=== PATIENT | male | born 1975 | race Native Hawaiian/Other Pacific Islander ===

== ENCOUNTER 2020-07-06 12:45 | Emergency (ER) | payer SELFPAY ==
[2020-07-06 12:59] VITALS: BP 154/106; PULSE 103; RESP 16; TEMP 36.9; O2SAT 94; BMI 33.0
--- NOTE | 2020-07-06 13:13 | ECG_ITS ---
[facility] Test Date: 2020-07-06 Pat Name: Tavo Rondon Department: Room: Gender: Male Clerical Manager: : 1975 Requested By: Roberto Morneal Order Number: [id number] Jose MD: Chapis Nicole M.D. Measurements Intervals [place] Rate: 112 P: 37 ID: 162 QRS: 72 QRSD: 90 T: 36 QT: 296 QTc: 405 Interpretive Statements SINUS TACHYCARDIA EARLY REPOLARIZATION [ST ELEVATION WITH NORMALLY INFLECTED T WAVE] ABNORMAL RHYTHM ECG No previous ECG available for comparison Electronically Signed On 07-06-2020 20:46:21 CDT by Chapis Nicole M.D. [id number]
--- NOTE | 2020-07-06 13:24 | W.ED.CHESTPA ---
HPI - Chest Pain General: Chief Complaint: Chest Pain Stated Complaint: CP, SOB, CHEST PRESSURE Time Seen by Provider: 07/06/20 13:06 History of Present Illness: HPI narrative: 45-year-old male presents with chest pressure/shortness of breath that started around 1:30 AM this morning. Patient reports he gets worse with deep breaths. Patient reports he has a lot of gas and has been belching and passing gas quite a bit. He feels almost like there is a pressure coming out of his upper abdomen into his chest. Patient denies any fevers or chills. He does report an occasional cough. Associated symptoms: Reports dyspnea; Deny abdominal pain, fever(s), nausea or vomiting Review of Systems Const: Denies: fever(s) or chills Card: Reports: chest pain Resp: Reports: dyspnea and pain on inspiration GI: Reports: belching and excessive flatus; Denies: abdominal pain, nausea or vomiting : Denies: flank pain or difficulty urinating Skin/Breast: Denies: rash or pruritus Neuro: Denies: headache(s) Psych: Denies: anxiety or depression Physical Exam Const: COMMON NORMALS: patient oriented x3 GENERAL APPEARANCE: cooperative, well kempt and other (Mildly uncomfortable) HENMT: COMMON NORMALS: normocephalic and atraumatic HEAD & SCALP: normocephalic and atraumatic Eye: COMMON NORMALS: Equal, round and reactive pupils present and EOMs intact bilaterally PUPIL: Yes Equal, round and reactive pupils present Chest: COMMONS NORMALS: normal inspection of the chest Resp: COMMON NORMALS: normal respiratory effort, No retractions, No use of accessory muscles and clear to auscultation bilaterally EFFORT & INSPECTION: Yes able to speak in complete sentences AUSCULTATION: clear to auscultation bilaterally Cardio: COMMON NORMALS: regular rate RATE: regular rate and tachycardic GI: COMMON NORMALS: Soft to palpation and non-tender PALPATION: Yes Soft to palpation Extremity: COMMON NORMALS: normal to inspection and full ROM Neuro: COMMON NORMALS: patient oriented x3, CN's II-XII intact bilaterally and moves all extremities Psych: APPEARANCE: Yes grossly normal and Yes well kempt Skin: COMMON NORMALS: no rashes or lesions noted GENERAL SKIN EXAM: no rashes or lesions noted Course Vital Signs: Vital signs: Vital Signs Temperature 98.4 F 05/16/21 12:59 Pulse Rate 116 H 07/06/20 15:42 Respiratory Rate 18 07/06/20 15:42 Blood Pressure 147/105 07/06/20 15:42 Pulse Oximetry 97 07/06/20 14:35 MDM - Chest Pain MDM Narrative: Medical decision making narrative: Patient symptoms significantly improved following Toradol. The pain in his chest wall completely resolved. Patient does have elevated white count. I suspect he has a early viral bronchitis/infectious bronchitis. I will treat him with azithromycin, I will give him ibuprofen 800 mg 3 times a day along with a inhaler. Patient stable and discharged home. Lab Data: Attestation: I reviewed the patient's lab results. Labs: Lab Results 07/06/20 07/06/20 07/06/20 Range/Units 13:37 13:37 13:37 WBC 15.8 H (4.0-10.0) 10^3/ uL RBC 5.66 H (4.1-5.3) 10^6/u L Hgb 17.3 H (11.7-16.6) g/dL Hct 49.9 (42.0-52.0) % MCV 88.2 (80-94) fL MCH 30.6 (28.0-34.0) pg MCHC 34.7 (30.0-36.0) g/dL RDW 12.4 (12.1-15.1) % Plt Count 224 (130-400) 10^3/c mm MPV 10.6 H (7.4-10.4) fL Neut % (Auto) 81.4 % Lymph % (Auto) 8.2 % [place] % (Auto) 9.6 % Eos % (Auto) 0.2 % Baso % (Auto) 0.3 % Neut # (Auto) 12.87 H (1.8-7.7) 10^3/u L Lymph # (Auto) 1.3 (0.8-4.8) 10^3/u L [place] # (Auto) 1.5 H (0.2-0.9) 10^3/u L Eos # (Auto) 0.0 (0.0-0.8) 10^3/u L Baso # (Auto) 0.1 (0.0-0.1) 10^3/u L Nucleated RBC % (a uto) 0 % Nucleated RBCs # 0.0 /100WBC Sodium 137 (136-145) mmol/L Potassium 4.1 (3.5-5.1) mmol/L Chloride 102 (98-107) mmol/L Carbon Dioxide 24 (22-29) mmol/L Anion Gap 15.1 (5-19) BUN 11 (6-20) mg/dL Creatinine 0.9 (0.7-1.2) mg/dL GFR Calculation 91.3 (90-130) mL/min Glucose 109 (65-115) mg/dL Calculated Osmolal ity 284 L (285-295) mOsm/k g Calcium 8.9 (8.5-10.5) mg/dL Total Bilirubin 0.7 (0.15-1.2) mg/dL AST 21 (0-40) U/L ALT 36 (0-41) U/L Alkaline Phosphata se 92 (40-130) IU/L Troponin T Baselin e 6 (0-15) ng/L Troponin T 120 Min [place] (0-15) ng/L Delta Troponin T (0-10) ABS# Total Protein 7.3 (6.6-8.7) g/dL Albumin 4.0 (3.5-5.2) g/dL Globulin 3.3 (1.3-4.6) g/dL Lipase 32 (13-60) U/L / Range/Units 15:37 WBC (4.0-10.0) 10^3/ uL RBC (4.1-5.3) 10^6/u L Hgb (11.7-16.6) g/dL Hct (42.0-52.0) % MCV (80-94) fL MCH (28.0-34.0) pg MCHC (30.0-36.0) g/dL RDW (12.1-15.1) % Plt Count (130-400) 10^3/c mm MPV (7.4-10.4) fL Neut % (Auto) % Lymph % (Auto) % [place] % (Auto) % Eos % (Auto) % Baso % (Auto) % Neut # (Auto) (1.8-7.7) 10^3/u L Lymph # (Auto) (0.8-4.8) 10^3/u L [place] # (Auto) (0.2-0.9) 10^3/u L Eos # (Auto) (0.0-0.8) 10^3/u L Baso # (Auto) (0.0-0.1) 10^3/u L Nucleated RBC % (a uto) % Nucleated RBCs # /100WBC Sodium (136-145) mmol/L Potassium (3.5-5.1) mmol/L Chloride (98-107) mmol/L Carbon Dioxide (22-29) mmol/L Anion Gap (5-19) BUN (6-20) mg/dL Creatinine (0.7-1.2) mg/dL GFR Calculation (90-130) mL/min Glucose (65-115) mg/dL Calculated Osmolal ity (285-295) mOsm/k g Calcium (8.5-10.5) mg/dL Total Bilirubin (0.15-1.2) mg/dL AST (0-40) U/L ALT (0-41) U/L Alkaline Phosphata se (40-130) IU/L Troponin T Baselin e (0-15) ng/L Troponin T 120 Min [place] 6.00 (0-15) ng/L Delta Troponin T 0 (0-10) ABS# Total Protein (6.6-8.7) g/dL Albumin (3.5-5.2) g/dL Globulin (1.3-4.6) g/dL Lipase (13-60) U/L Imaging Data^: CXR: Attestation: I personally reviewed and interpreted this imaging study as follows: My impression: No acute findings Radiologist's impression: No acute cardiopulmonary findings EKG Data^: EKG 1: Attestation: I personally reviewed and interpreted this EKG as follows: EKG interpretation date: 07/06/20 EKG interpretation time: 12:58 Interpretation: Heart rate 112, sinus tach, NH interval 162 ms, early repole, no acute findings EKG 2: EKG interpretation date: 07/06/20 EKG interpretation time: 15:37 Prior EKG tracings: available for review Interpretation: HR 97, sinus rhythm, early repol, pr 169, no acute changes Discharge Plan Discharge Patient Disposition: Home Clinical Impression: Pleuritic chest pain, Bronchitis Condition: Stable Prescriptions: New azithromycin 250 mg tablet See Rx Instructions .ROUTE .COMPLEX Qty: 6 RF: 0 ibuprofen 800 mg tablet 800 mg PO Q8H PRN (Reason: pain) Qty: 30 RF: 0 albuterol sulfate 90 mcg/actuation HFA aerosol inhaler 1 inh inhalation Q6H PRN (Reason: shortness of breath or wheezing) Qty: 8.5 RF: 0 No Action No Known Home Medications RF: 0 Discharge Orders: Discharge ED (Routine); Ordered 07/06/20 Ordered By: Roberto Monreal Referrals: Kailey Andres DO [Primary Care Provider] - Discharge Diet: Usual diet Discharge Activity: Increase activity as tolerated Patient Instructions: Opioid Safety, Pleurisy (ED), Bronchitis (Acute) - Adult Activity Restrictions/Additional Instructions: Follow-up with your primary care provider in 2 to 3 days for recheck of today's symptoms Coding Level of Care Code ED Electronics Warfare Technician for [place] Fwd Exam Comprehensive
[2020-07-06 13:32] VITALS: BP 158/116; PULSE 96; RESP 23; O2SAT 94; O2SAT 95
[2020-07-06 13:44] LABS: Basophils # 0.1 10^3/uL (0.0-0.1); Basophils % 0.3 %; Eosinophils % 0.2 %; Hematocrit 49.9 % (42.0-52.0); Hemoglobin 17.3 g/dL (11.7-16.6); Lymphocytes # 1.3 10^3/uL (0.8-4.8); Lymphocytes % 8.2 %; Mean Corpuscular HGB Conc 34.7 g/dL (30.0-36.0); Mean Corpuscular Hemoglobin 30.6 pg (28.0-34.0); Mean Corpuscular Volume 88.2 fL (80-94); Mean Platelet Volume 10.6 fL (7.4-10.4); Monocytes # 1.5 10^3/uL (0.2-0.9); Monocytes % 9.6 %; Neutrophils # 12.87 10^3/uL (1.8-7.7); Neutrophils % 81.4 %; Nucleated Red Blood Cells % 0 %; Platelet Count 224 10^3/cmm (130-400); Red Blood Count 5.66 10^6/uL (4.1-5.3); Red Cell Distribution Width 12.4 % (12.1-15.1); White Blood Count 15.8 10^3/uL (4.0-10.0)
[2020-07-06] MEDS: aspirin 81 mg Chew Tablet 324 MG PO (14:00)
--- NOTE | 2020-07-06 14:01 | XRR_ITS ---
PROCEDURE INFORMATION: Exam: XR Chest Exam date and time: 07/06/2020 2:02 PM Age: 45 years old Clinical indication: Pain; Chest pressure; Additional info: DC [place] TECHNIQUE: Imaging protocol: XR of the chest. Views: 1 view. COMPARISON: No relevant prior studies available. FINDINGS: Lungs: Mildly increased lung markings, likely secondary to low lung volumes. Minimal bibasilar atelectasis. No focal consolidation. Pleural spaces: Unremarkable. No pleural effusion. No pneumothorax. Heart/Mediastinum: Unremarkable. No cardiomegaly. Bones/joints: Unremarkable. XR/XR chest 1V portable [id number] IMPRESSION: No evidence of active cardiopulmonary disease.
[2020-07-06 14:04] LABS: Troponin(5th) Baseline 6 ng/L (0-15)
[2020-07-06 14:19] LABS: Alanine Aminotransferase 36 U/L (0-41); Alkaline Phosphatase 92 IU/L (40-130); Anion Gap 15.1 (5-19); Aspartate Amino Transferase 21 U/L (0-40); Blood Urea Nitrogen 11 mg/dL (6-20); Calcium 8.9 mg/dL (8.5-10.5); Carbon Dioxide 24 mmol/L (22-29); Chloride 102 mmol/L (98-107); Globulin 3.3 g/dL (1.3-4.6); Glomerular Filtration Rate 91.3 mL/min (90-130); Glucose 109 mg/dL (65-115); Lipase 32 U/L (13-60); Osmolality Calculated 284 mOsm/kg (285-295); Potassium 4.1 mmol/L (3.5-5.1); Sodium 137 mmol/L (136-145); Total Bilirubin 0.7 mg/dL (0.15-1.2); Total Protein 7.3 g/dL (6.6-8.7)
[2020-07-06] MEDS: ketorolac 30 mg/mL INJ 15 MG IVP (14:32)
[2020-07-06 14:35] VITALS: BP 167/121; PULSE 93; RESP 25; O2SAT 97
--- NOTE | 2020-07-06 15:13 | ECG_ITS ---
[facility] Test Date: 2020-07-06 Pat Name: Tavo Rondon Department: Room: Gender: Male Junior Electrical Engineer: : 1975 Requested By: Roberto Monreal Order Number: [id number] Garcia MD: Chapis Nicole M.D. Measurements Intervals [place] Rate: 97 P: 35 FL: 169 QRS: 68 QRSD: 92 T: 37 QT: 316 QTc: 403 Interpretive Statements SINUS RHYTHM ST ELEVATION, PROBABLY EARLY REPOLARIZATION [ST ELEVATION WITH NORMALLY INFLECTED T WAVE] Compared to ECG 07/06/2020 12:58:23 ST (T wave) deviation now present Sinus tachycardia no longer present Electronically Signed On 07-06-2020 20:52:13 CDT by Chapis Nicole M.D. [id number]
[2020-07-06 15:42] VITALS: BP 147/105; PULSE 116; RESP 18
[2020-07-06 16:09] LABS: Troponin 5 2HR Delta 0 ABS# (0-10)
[2020-07-06 16:14] VITALS: BP 130/100; PULSE 88; RESP 16; O2SAT 95
== END 2020-07-06 16:15 | disposition home or self-care (01) ==
PROVIDERS: Emergency Provider Student in an Organized Health Care Education/Training Program; PCP Internal Medicine
DX: R07.89 Other chest pain (principal); J40 Bronchitis, not specified as acute or chronic
CPT/HCPCS: 71045; 80053; 83690; 84484; 85025; 93005; 96374; 99284; J1885